=== PATIENT | female | born 1980 | race Hispanic/Latino ===

== ENCOUNTER 2021-08-22 14:56 | Emergency (ER) | payer OTHER ==
[~2021-08-22] VITALS: Ht 157.5 cm; Wt 77.1 kg
[2021-08-22 14:58] VITALS: BP 165/116
[2021-08-22 15:36] LABS: BASOPHILS % (AUTO) 0.2 % (0.0-5.0); EOSINOPHILS % (AUTO) 0.2 % (0.0-8.0); HEMATOCRIT 36.3 % (36-48); LYMPHOCYTES % (AUTO) 13.8 % (21.0-51.0); MEAN CORPUSCULAR HEMOGLOBIN 27.1 pg (27.0-33.0); MEAN CORPUSCULAR HGB CONC 31.7 g/dL (32.0-36.0); MEAN CORPUSCULAR VOLUME 85.4 fL (79-99); MONOCYTES % (AUTO) 4.6 % (3.0-13.0); NEUTROPHILS % (AUTO) 80.7 % (40.0-77.0); PLATELET COUNT (AUTO) 223 K/uL (130-400); RED BLOOD CELL COUNT(AUTO) 4.25 MIL/uL (4.00-5.50); RED CELL DISTRIBUTION WIDTH 14.4 % (11.0-15.5); WHITE BLOOD COUNT (AUTO) 13.3 K/uL (4.8-10.8)
[2021-08-22 15:47] LABS: CREATININE 0.7 mg/dL (0.5-1.5); POTASSIUM 3.6 mmol/L (3.5-5.1)
[2021-08-22 15:56] LABS: ALBUMIN 3.9 g/dL (3.5-5.0); BILIRUBIN,TOTAL 0.3 mg/dL (0.2-1.0); TOTAL PROTEIN, SERUM 7.6 g/dL (6.0-8.3)
[2021-08-22] MEDS ORDERED: DICYCLOMINE HCL 10 MG/5 ML ML PO ONE (16:30)
[2021-08-22] MEDS ORDERED: MAG/ALUM/SIMETH 30 ML UDCUP PO ONE (16:30)
[2021-08-22] MEDS ORDERED: LIDOCAINE HCL 2% VISCOUS 15 ML UDCUP PO ONE (16:30)
[2021-08-22 16:36] LABS: APPEARANCE,URINE Cloudy (CLEAR); BILIRUBIN,URINE Negative (NEGATIVE); COLOR,URINE Yellow (YELLOW); GLUCOSE, URINE (UA) Negative (NEGATIVE); KETONES,URINE Trace mg/dL (NEGATIVE); LEUKOCYTE ESTERASE ,URINE Trace (NEGATIVE); NITRATE,URINE Negative (NEGATIVE); OCCULT BLOOD,URINE Large (NEGATIVE); PH,URINE 5.5 (5.0-8.0); PROTEIN,URINE Negative (NEGATIVE)
[2021-08-22 16:38] LABS: HCG,QUAL RESULT NEGATIVE (NEGATIVE)
[2021-08-22 17:00] LABS: BACTERIA,URINE Few /HPF (None Seen); MUCUS,URINE Moderate LPF (None Seen); WBC,URINE 0-1 /HPF (0-1)
[2021-08-22] MEDS ORDERED: OMEP20TA25 PO (17:32)
[2021-08-22] MEDS ORDERED: MAG-37 PO (17:32)
== END 2021-08-22 17:54 | disposition home or self-care (01) ==
LOC: EDH 14:56
DX: K29.70 Gastritis, unspecified, without bleeding (principal); E78.00 Pure hypercholesterolemia, unspecified
CPT/HCPCS: 36415; 80053; 81001; 81025; 82150; 83690; 84484; 85025

== ENCOUNTER 2023-07-29 12:34 | Emergency (ER) | payer BC ==
[~2023-07-29] VITALS: Ht 157.5 cm; Wt 78.5 kg
[~2023-07-29 12:34] MED LIST: MAG-37 PO; OMEP20TA20 PO
[2023-07-29 13:03] VITALS: BP 118/54; PULSE 83; RESP 17
[2023-07-29] MEDS ORDERED: BUPIVACAINE/PF 0.5% 30ML VIAL ONE (14:47)
[2023-07-29] MEDS ORDERED: DIPH,PERTUSS(ACELL),TET VAC/PF 0.5 ML VIAL IM ONE (15:00)
[2023-07-29] MEDS ORDERED: BUPIVACAINE/PF 0.5% 10ML VIAL IJ ONE (15:00)
[2023-07-29] MEDS ORDERED: TETANUS/DIPHTHERIA TOXOID [ADULT] 0.5 ML VIAL IM ONE (15:00)
[2023-07-29] MEDS ORDERED: IBUP-2070 PO (15:24)
[2023-07-29] MEDS ORDERED: MUPI22OI2 TP (15:24)
[2023-07-29] MEDS ORDERED: DOXY100C5 PO (15:24)
== END 2023-07-29 15:51 | disposition home or self-care (01) ==
LOC: EDH 12:34
DX: S60.455A Superficial foreign body of left ring finger, initial encounter (principal); E78.00 Pure hypercholesterolemia, unspecified; Z79.899 Other long term (current) drug therapy; W26.8XXA Contact with other sharp object(s), not elsewhere classified, initial encounter; W45.8XXA Other foreign body or object entering through skin, initial encounter; Y93.89 Activity, other specified; Y92.89 Other specified places as the place of occurrence of the external cause; Y99.8 Other external cause status
CPT/HCPCS: 99284; 10120; 90714; 73130; 90471; J0665